=== PATIENT | female | born 1955 | race Hispanic/Latino ===

== ENCOUNTER 2024-06-14 18:45 | Emergency (ER) | payer OTHER, MEDICARE ==
[~2024-06-14] VITALS: Ht 157.5 cm; Wt 70.3 kg
[2024-06-14] MEDS ORDERED: VALA10002 PO (20:12)
[2024-06-14] MEDS ORDERED: PRED20TA3 PO (20:12)
[2024-06-14] MEDS ORDERED: GABA-529 PO (20:12)
--- NOTE | 2024-06-14 20:13 | ERN ---
ED Note History of Present Illness Stated Complaint: RASH, PAIN Chief Complaint: Skin Rash/Abscess Time Seen by MD: 19:01 Time Seen by Midlevel: 19:10 Dictation: 69-year-old female with past medical history of hypertension coming in complaining of painful rash to the left lower quadrant for the last four days. Patient states the rash feels like it is burning and painful and itching. No other complaints. Allergies: Coded Allergies: No Known Allergies (Unverified Allergy, Unknown, 06/14/24) Past Medical History Past Medical History: High Cholesterol, Hypertension Additional Past Medical Hx: HX OF BREAST CA Surgical History: Hysterectomy, Other Surgical History Other: LT MASECTOMY Review of System Dictation Constitutional: Negative for fever,chills, and weight loss Eyes: Negative for injury, pain,redness, and discharge ENT: Negative for injury,pain or swelling Cardiovascular: Negative for chest pain, palpitations, and edema Respiratory: Negative for shortness of breath, cough, and wheezing, Abdomen/GI: Negative for abdominal pain, nausea, vomiting, diarrhea, and constipation Back: Negative for injury and pain : Negative for injury, bleeding and discharge MS/Extremity: Negative for injury and deformity Skin: Rash to the left lower quadrant and left hip Neuro: Negative for headache, weakness, numbness, tingling, and seizure Psych: Negative for suicide ideation, homicidal ideation, and hallucinations Review of Systems: was completed Initial Vital Sign VS Vital Signs Date Time Temp Pulse Resp B/P (MAP) Pulse Ox O2 Delivery O2 Flow Rate FiO2 06/14/24 18:47 97.9 69 16 151/64 97 Room Air 0 Physical Exam Dictation General: awake, alert, NAD Head/Face: Normocephalic, atraumatic Eyes: PERRL, EOMI, vision at baseline ENT: oral cavity clear, TMs clear, no signs of infection Neck: Trachea midline, supple, no nuchal rigidity Cardiovascular: RRR, normal S1/S2, No MRGs, no JVD Respiratory: CTAB, no respiratory distress, No rales or wheezes Abdomen: Soft, non-tender, non-distended, normal bowel sounds, no guarding or rebound. Skin: Small red bumps on the left lower quadrant and small blisters on the left hip. Patient states she has pain, burning sensation to that area MS/Extremity: Pulses equal, no cyanosis, neurovascular intact, FROM Neuro: COAx4, GCS 15, strength 5/5, CN 2-12 intact, normal cerebellar exam, normal gait, Psych: Normal behavior, mood, and affect normal ED Course ED Course Vital Signs Date Time Temp Pulse Resp B/P (MAP) Pulse Ox O2 Delivery O2 Flow Rate FiO2 06/14/24 18:47 97.9 69 16 151/64 97 Room Air 0 Medical Decision Making MDM MDM: 69-year-old female with past medical history of hypertension coming in complaining of painful rash to the left lower quadrant for the last four days. Patient states the rash feels like it is burning and painful and itching. No other complaints. Rash is red, some areas of the rash are blister-like with fluid filled. Patient complains of pain, burning sensation to that area. This is more likely consistent with a shingles. We will give patient pain management here and discharge patient to follow up outpatient with an antiviral. Discussed findings with patient and daughter, educated that this is contagious and to maintain precautions. Differential diagnosis: Impetigo, shingles, rash, insect bite, cellulitis Rationale: Tests considered and ordered secondary to shared decision making include: Previous outside records reviewed: Old ER visits. Risk of complication and/or morbidity or mortality of patient management: None Medications-Per medication reconciliation Need for hospitalization: Patient does not meet criteria for hospitalization. Need for emergency major/minor surgery: No There are no social concerns with this patient. Prescription drug management Prescriptions will include symptomatic care Patient's prior external medical records from other ER visits were reviewed by me as indicated. Prior testing and results from previous visits were reviewed. Prior tests were taken into account with medical decision making and resource utilization, independent historian/historians were used to obtain complete medical history. I independently interpreted the test that were performed, results were reviewed by me and considered findings on radiology if ordered. Medical management and examination interpretation discussions were had by me with other qualified healthcare professionals as indicated for the patient's care. DX & DISP Disposition: Discharge Departure Impression: Primary Impression: Shingles Condition: Stable Scripts Gabapentin (Gabapentin) 100 Mg Capsule 1 CAP PO TID for 30 Days, #90 CAP 0 Refills Prov: KARLENE VARGAS [employer] 06/14/24 Prednisone (Prednisone) 20 Mg Tablet 1 TAB PO AD for 6 Days, #14 TAB 0 Refills TAKE 1 TAB BY MOUTH THREE TIMES PER DAY X3 DAYS, THEN TAKE 1 TAB BY MOUTH TWICE A DAY X2 DAYS, THEN TAKE 1 TAB BY MOUTH ONCE A DAY X1 DAY. Prov: KARLENE VARGAS NP 06/14/24 Valacyclovir HCl (Valtrex) 1,000 Mg Tablet 1 TAB PO TID for 7 Days, #21 TAB 0 Refills Prov: KARLENE VARGAS NP 06/14/24 Referrals: RONAL WALTERS (PCP) Time of Disposition: 20:12 I have reviewed the case, and I agree with, Diagnosis and Plan KARLENE VARGAS NP Jun 14, 2024 20:13
[2024-06-14 20:20] VITALS: BP 150/60; PULSE 64; RESP 16; TEMP 98.1; O2SAT 97
[2024-06-14] MEDS: GABAPENTIN 300 MG CAPSULE PO STA (20:28)
== END 2024-06-14 20:35 | disposition home or self-care (01) ==
LOC: EDH 18:45
DX: B02.9 Zoster without complications (principal); E78.00 Pure hypercholesterolemia, unspecified; I10 Essential (primary) hypertension; Z85.3 Personal history of malignant neoplasm of breast; Z90.710 Acquired absence of both cervix and uterus
CPT/HCPCS: 99283